=== PATIENT | male | born 2000 | race Caucasian/White ===

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

== ENCOUNTER 2023-03-05 08:34 | Emergency (ER) | payer OTHER ==
[~2023-03-05] VITALS: Ht 180.3 cm; Wt 77.1 kg
[~2023-03-05 08:34] MED LIST changes: -CETI-101 PO; +CETI-80 PO; +DOCU250C71 PO; +HYDR-4272 PO
[2023-03-05 08:38] VITALS: BP_SYST 140; PULSE 118; RESP 16; TEMP 99.5; O2SAT 100
[2023-03-05] MEDS ORDERED: IBUPROFEN 600 MG TABLET PO ONE (09:45)
[2023-03-05 10:01] LABS: INFLUENZA TYPE B NEGATIVE (NEGATIVE)
[2023-03-05 10:04] LABS: INFLUENZA TYPE A Positive (NEGATIVE)
[2023-03-05] MEDS ORDERED: OSEL75CA PO (10:12)
[2023-03-05] MEDS ORDERED: IBUP-1969 PO (10:12)
[2023-03-05 10:19] VITALS: BP_SYST 136; PULSE 118; RESP 16; TEMP 99.5; O2SAT 100
== END 2023-03-05 10:20 | disposition home or self-care (01) ==
LOC: SED 08:34
DX: J10.1 Influenza due to other identified influenza virus with other respiratory manifestations (principal); R50.9 Fever, unspecified; M79.10 Myalgia, unspecified site; R05.9 Cough, unspecified; Z88.0 Allergy status to penicillin; Z88.1 Allergy status to other antibiotic agents; Z79.899 Other long term (current) drug therapy; Z20.822 Contact with and (suspected) exposure to COVID-19
CPT/HCPCS: 36415; 71045; 99284